=== PATIENT | female | born 1960 | race Caucasian/White ===

== ENCOUNTER 2017-03-28 16:47 | Emergency (ER) | payer OTHER ==
[~2017-03-28] VITALS: Ht 157.5 cm; Wt 62.0 kg
[2017-03-28 16:49] VITALS: Ht 157.5 cm; Wt 62.0 kg
[2017-03-28] MEDS ORDERED: CETI10CA PO (17:46)
[2017-03-28] MEDS ORDERED: HC30CR25 TOP (17:46)
--- NOTE | 2017-03-28 17:48 | ERD ---
ER Documentation Chief Complaint Date/Time DATE: 03/28/17 TIME: 17:46 Chief Complaint rash/ itchiness - possible insect bite HPI Patient is a 56-year-old female who presents to the ED with multiple insect bites on arm and legs 2 weeks. States that the insect bites come and go. Denies fever or chills. Denies tongue or lip swelling. Denies chest pain or shortness of breath or difficulty breathing. Patient has used Benadryl which has helped however she would like another cream for her symptoms. She has used [id number] hydrocortisone cream with minimal relief. Denies change in hygiene products. Denies recent travel. Denies seizures. No other complaints. ROS All systems reviewed and are negative except as per history of present illness. Medications Home Meds Active Scripts Cetirizine Hcl* (Zyrtec*) 10 Mg Capsule, 10 MG PO DAILY, #10 TAB.CHEW Prov:ANTOINETTE SALES PA-C 03/28/17 Hydrocortisone* Topical (Hydrocortisone* Topical) 2.5%-28.3 Gm Cream..g., 1 APPLIC TOP BID, #3 TUB Prov:ANTOINETTE SALES PA-C 03/28/17 Allergies Allergies: Coded Allergies: Penicillins (Verified Allergy, Unknown, 03/28/17) Uncoded Allergies: AMPICILLINS (Allergy, Unknown, 03/28/17) PMhx/Soc Medical and Surgical Hx: pt denies Medical Hx, pt denies Surgical Hx Hx Alcohol Use: No Hx Substance Use: No Hx Tobacco Use: No Smoking Status: Never smoker Physical Exam Vitals Vital Signs Date Time Temp Pulse Resp B/P Pulse Ox O2 Delivery O2 Flow Rate FiO2 03/28/17 16:49 99.0 90 19 167/79 97 Physical Exam GENERAL: Well-developed, well-nourished female. Appears in no acute distress. HEAD: Normocephalic, atraumatic. EYES: Pupils are equally reactive bilaterally. EOMs grossly intact. No conjunctival erythema. ENT: Moist mucous membranes. No uvula deviation. No kissing tonsils. No exudates. NECK: Supple. No lymphadenopathy or thyromegaly. No meningismus. negative kernig. negative brudinski. LUNG: Clear to auscultation bilaterally. No rhonchi, wheezing, rales or coarse breath sounds. HEART: Regular rate and rhythm. No murmurs, rubs or gallops. Extremities: Equal pulses bilaterally. No peripheral clubbing, cyanosis or edema. No unilateral leg swelling. NEUROLOGIC: Alert and oriented. Moving all four extremities. 5/5 strength in all extremities. Normal speech. Steady gait. SKIN: Normal color. Warm and dry. We will insect bites on bilateral arms and legs. No warmth or surrounding erythema or fluctuance or induration. No signs of infection. Capillary refill < 2 seconds Procedures/MDM ER COURSE: I kept the patient and/or family informed of laboratory and diagnostic imaging results throughout the emergency room course. MEDICAL DECISION MAKING: This is a 56-year-old female who presents with insect bites. Vital signs were reviewed. Patient is afebrile. Patient is not hypoxic. She is not toxic or ill appearing. Patient has insect bites. Low suspicion for necrotizing fasciitis, SJS, toxic epidermal necrolysis, Kawasaki, erythema multiforme, gangrene, scarlet fever, meningococcemia, sepsis, anaphylaxis, sepsis, deep space infection, or foreign body. DISCHARGE: At this time, patient is stable for discharge and outpatient management with no new complaints during the ER course. Patient was sent home with hydrocortisone and Zyrtec and advised to vacuum and clean all bed sheets.. Patient will be discharged home with instructions to recheck for new or worsening symptoms such as fever, nausea, weakness, LOC and to follow up with primary care in the next 1 -2 days. Patient was advised to return to the ER for any new or worsening symptoms. Plan was discussed and patient and/or family understands and agrees. Home instructions were given. Departure Diagnosis: Primary Impression: Insect bite Encounter type: initial encounter Qualified Code: W57.XXXA - Insect bite, initial encounter Condition: Stable Patient Instructions: Insect Bite Additional Instructions: Call your primary care doctor TOMORROW for an appointment during the next 1-2 days.See the doctor sooner or return here if your condition worsens before your appointment time. ANTOINETTE SALES PA-C Mar 28, 2017 17:48
== END 2017-03-28 18:05 | disposition home or self-care (01) ==
LOC: EDBD 16:47 → FTE 16:47
DX: S40.861A Insect bite (nonvenomous) of right upper arm, initial encounter (principal); S40.862A Insect bite (nonvenomous) of left upper arm, initial encounter; S80.861A Insect bite (nonvenomous), right lower leg, initial encounter; S80.862A Insect bite (nonvenomous), left lower leg, initial encounter; W57.XXXA Bitten or stung by nonvenomous insect and other nonvenomous arthropods, initial encounter; Y92.9 Unspecified place or not applicable
CPT/HCPCS: 99283